=== PATIENT | male | born 1990 | race African-American/Black ===

== ENCOUNTER 2016-12-23 09:16 | Emergency (ER) | payer SELFPAY ==
[~2016-12-23] VITALS: Ht 198.1 cm; Wt 99.8 kg
[2016-12-23 09:21] VITALS: BP 127/85
== END 2016-12-23 10:33 | disposition home or self-care (01) ==
LOC: ER 09:17
DX: L08.89 Other specified local infections of the skin and subcutaneous tissue (principal); L03.012 Cellulitis of left finger
CPT/HCPCS: A4606; A6402; Z7610

== ENCOUNTER 2019-02-06 20:24 | Emergency (ER) | payer SELFPAY ==
[~2019-02-06] VITALS: Ht 198.1 cm; Wt 102.1 kg
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
[2019-02-06] MEDS ORDERED: LIDOCAINE /MPF 1% VIAL 5 ML VIAL ONE (21:08)
--- NOTE | 2019-02-06 21:09 | NUR ---
LIDO 1% 5ML AT THE BEDSIDE WITH Oralia SALAZAR PA-C FOR INTERVENTION.
--- NOTE | 2019-02-06 21:19 | NUR ---
PT'S RT THUMB REDUCED.
--- NOTE | 2019-02-06 21:25 | NUR ---
XRAY AT THE BEDSIDE.
--- NOTE | 2019-02-06 22:07 | NUR ---
Patient discharged to home in stable condition. Written and verbal after care instructions given. Patient verbalizes understanding of instruction AND RX. PT AMBULATED OUT WITH A STEADY GAIT. VSS. PT REC'D A SPLINT TO THE RT THUMB.
[2019-02-06 22:09] VITALS: BP 129/74
== END 2019-02-06 22:09 | disposition home or self-care (01) ==
LOC: ER 20:27
DX: S63.124A Dislocation of interphalangeal joint of right thumb, initial encounter (principal); V00.311A Fall from snowboard, initial encounter; Y93.29 Activity, other involving ice and snow; Y92.39 Other specified sports and athletic area as the place of occurrence of the external cause; Y99.8 Other external cause status
CPT/HCPCS: 26770; 73140; 99284; A4606; J3490